=== PATIENT | male | born 1985 | race Caucasian/White ===

== ENCOUNTER 2016-09-23 07:46 | Inpatient (IN) | payer OTHER ==
[2016-09-23] MEDS ORDERED: HYDROmorphONE/DILAUDID 1 MG/ML SYR IVP ONE (07:52)
[2016-09-23 08:01] LABS: % IMMATURE GRANULYOCYTES 0.4 % (0.0-1.1); ABSOLUTE IMMATURE GRANULOCYTES 0.03 10^3/uL (0.00-0.10); ADD DIFF? NO; ADD MORPH? NO; ADD SCAN? NO; ATYPICAL LYMPHOCYTE FLAG 10 (0-99); FRAGMENT RBC FLAG 0 (0-99); LEFT SHIFT FLG 0 (0-99); LIPEMIA HEMOLYSIS FLAG 90 (0-99); MEAN CELL HEMOGLOBIN 28.5 pg (27.9-34.1); MEAN CELL HEMOGLOBIN CONCENTR. 34.8 g/dL (32.4-36.7); MEAN PLATELET VOLUME 11.2 fL (8.7-11.7); PLATELET CLUMPS FLAG 10 (0-99); PLATELET COUNT 214 10^3/uL (150-400); RED BLOOD CELL COUNT 5.61 10^6/uL (4.40-6.38); RED CELL DISTRIBUTION WIDTH 12.8 % (11.5-15.2)
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
[2016-09-23 08:14] LABS: PROTIME(PATIENT) 13.1 SEC (12.0-15.0)
[2016-09-23 08:15] LABS: APTT 26.1 SEC (23.0-38.0)
[2016-09-23 08:16] LABS: ANION GAP 15 mEq/L (8-16); CALCIUM 10.3 mg/dL (8.5-10.4); CARBON DIOXIDE 21 mEq/l (22-31); CHLORIDE 102 mEq/L (97-110); CREATININE 1.2 mg/dL (0.7-1.3); GLOMERULAR FILTRATION RATE > 60; GLUCOSE 102 mg/dL (70-100); SODIUM 138 mEq/L (134-144)
[2016-09-23] MEDS ORDERED: DIAZEPAM 5 MG TAB PO PRN (08:41)
[2016-09-23] MEDS ORDERED: ONDANSETRON DISINTEGRATING 4 MG TAB PO PRN (08:41)
[2016-09-23] MEDS ORDERED: LORazepam 2 MG/ML INJ IVP ONE (08:52)
[2016-09-23] MEDS ORDERED: LORazepam 2 MG/ML INJ ONE (08:53)
[2016-09-23] MEDS ORDERED: LR 1,000 ML IV SCH (09:00)
[2016-09-23] MEDS ORDERED: KETOROLAC 30 MG/1 ML SDV IVP ONE (09:05)
[2016-09-23] MEDS ORDERED: KETOROLAC 30 MG/1 ML SDV ONE (09:05)
[2016-09-23] MEDS ORDERED: LET GEL TOPICAL 1 EA SYR TP ONE ×2 (09:06→09:45)
[2016-09-23] MEDS ORDERED: ONDANSETRON 4 MG/2 ML VIAL IVP ONE (09:17)
[2016-09-23] MEDS ORDERED: NS 1,000 ML IV ONE (09:18)
[2016-09-23] MEDS ORDERED: TDAP ADULT 0.5 ML INJ (BOOSTRIX) IM ONE ×2 (10:14→10:45)
[2016-09-23] MEDS ORDERED: BACITRACIN OINTMENT 1 PACKET TP ONE ×2 (11:00→11:06)
[2016-09-23] MEDS ORDERED: CALCIUM CARBONATE 500 MG CHEWABLE TAB PO PRN (12:30)
--- NOTE | 2016-09-23 12:34 | SOAPPROG ---
Downtime Inpatient MD Late Entry SOAP Note: Tertiary survey completed. Eleazar had no acute findings on cervical MRI and his cervical collar has been removed. He remains hemodynamically stable. He has persistant pain with weight bearing on the LLE/plain films of the left ankle were negative. I have ordered left tib-fib films and will place him in an ankle immobilizer.
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
[2016-09-23] MEDS: ONDANSETRON 4 MG/2 ML VIAL IVP PRN ×2 (14:32→22:49)
[2016-09-23] MEDS: LR 1,000 ML IV SCH (14:51)
--- NOTE | 2016-09-23 15:28 | WOCRNPDOC ---
WOCRN Advanced Assessment Note - Skin Integrity Problem, Advanced Assess Left Lateral Ankle Abrasion Dressing Type: Gauze Dressing Description: Clean/Dry, Intact Exudate Amount: Minimal Exudate Characteristic(s): Serosanguinous Anel Wound Tissue: Erythema (mild from inflammation) Anel Wound Swelling: Moderate (on ankle, not wound specific) Wound Bed Constitution: Smooth Tissue (80%), Mixed Loose & Adhered Slough/ Eschar (20% ) Site Measurement - Head-to-Toe Length X Width X Depth (cm): 1.3x3.2x0.1 Skin Integrity Problem Comment: Mixed full and partial thickness. Care with Wound gel and Allevyn life. Left Flank Abrasion Dressing Type: Gauze Exudate Amount: Minimal Exudate Characteristic(s): Serosanguinous Integumentary Issue Intervention: Visualized Under Dressing Wound Bed Constitution: Smooth Tissue Skin Integrity Problem Comment: Large very shallow partial thickness wound. Care with xeroform/telfa and abd. No concerns. Left Palm Abrasion Dressing Type: Open to Air Skin Integrity Problem Comment: Category 1 skin tear with full flap. Please reapproximate flap, secure with steri strips and cover for protection with mepilex and mily. No sign of infection nor debris in any wounds. Wound care will sign off.
--- NOTE | 2016-09-23 15:35 | CPEKG ---
Heart Rate: 104 RR Interval: 577 P-R Interval: 176 QRSD Interval: 88 QT Interval: 344 QTC Interval: 453 P [place]: 46 QRS [place]: 26 T Wave [place]: 32 EKG Severity - OTHERWISE NORMAL ECG - EKG Impression: SINUS TACHYCARDIA Electronically Signed By: Ayush Reddy 23-Sep-2016 22:05:28
[2016-09-23 16:21] LABS: % IMMATURE GRANULYOCYTES 0.3 % (0.0-1.1); ABSOLUTE IMMATURE GRANULOCYTES 0.04 10^3/uL (0.00-0.10); ADD DIFF? NO; ADD MORPH? NO; ADD SCAN? NO; ATYPICAL LYMPHOCYTE FLAG 0 (0-99); FRAGMENT RBC FLAG 0 (0-99); HEMATOCRIT 39.2 % (40.0-51.0); HEMOGLOBIN 13.9 g/dL (13.7-17.5); LEFT SHIFT FLG 0 (0-99); LIPEMIA HEMOLYSIS FLAG 90 (0-99); MEAN CELL HEMOGLOBIN 28.7 pg (27.9-34.1); MEAN CELL HEMOGLOBIN CONCENTR. 35.5 g/dL (32.4-36.7); MEAN PLATELET VOLUME 11.3 fL (8.7-11.7); PLATELET CLUMPS FLAG 10 (0-99); PLATELET COUNT 157 10^3/uL (150-400); RED BLOOD CELL COUNT 4.84 10^6/uL (4.40-6.38); RED CELL DISTRIBUTION WIDTH 12.9 % (11.5-15.2)
[2016-09-23] MEDS: BACITRACIN ZINC 14.2 GM OINTTUBE TP SCH ×2 (16:39→19:56)
[2016-09-23] MEDS: ENOXAPARIN 40 MG/0.4 ML SYR SC SCH (16:59)
[2016-09-23] MEDS: HYDROCODONE/APAP 5/325 TAB PO PRN (18:26)
--- NOTE | 2016-09-23 22:48 | SOAPPROG ---
Downtime Inpatient MD Late Entry SOAP Note: repeat CXR shows no pneumothorax/atelectasis with stable pulmonary contusion
[2016-09-24] MEDS: HYDROCODONE/APAP 5/325 TAB PO PRN ×3 (00:36→13:21)
[2016-09-24] MEDS: LR 1,000 ML IV SCH (00:44)
[2016-09-24 02:00] LABS: % IMMATURE GRANULYOCYTES 0.3 % (0.0-1.1); ABSOLUTE IMMATURE GRANULOCYTES 0.03 10^3/uL (0.00-0.10); ADD DIFF? NO; ADD MORPH? NO; ADD SCAN? NO; ATYPICAL LYMPHOCYTE FLAG 10 (0-99); FRAGMENT RBC FLAG 0 (0-99); HEMATOCRIT 39.6 % (40.0-51.0); HEMOGLOBIN 13.5 g/dL (13.7-17.5); LEFT SHIFT FLG 0 (0-99); LIPEMIA HEMOLYSIS FLAG 90 (0-99); MEAN CELL HEMOGLOBIN 28.4 pg (27.9-34.1); MEAN CELL HEMOGLOBIN CONCENTR. 34.1 g/dL (32.4-36.7); MEAN CELL VOLUME 83.2 fL (81.5-99.8); MEAN PLATELET VOLUME 11.8 fL (8.7-11.7); PLATELET CLUMPS FLAG 10 (0-99); PLATELET COUNT 157 10^3/uL (150-400); RED BLOOD CELL COUNT 4.76 10^6/uL (4.40-6.38); RED CELL DISTRIBUTION WIDTH 12.9 % (11.5-15.2)
[2016-09-24] MEDS: ONDANSETRON 4 MG/2 ML VIAL IVP PRN ×2 (08:04→21:06)
[2016-09-24] MEDS: ENOXAPARIN 40 MG/0.4 ML SYR SC SCH (08:20)
--- NOTE | 2016-09-24 08:52 | SOAPPROG ---
SOAP Progress Note Assessment/Plan: Assessment: Plan: Subjective: vss,af tolerating pain from l rib fx notes left leg soreness new l apical pneumo. will check cxr tomorrow. Objective: Vital Signs Temp Pulse Resp BP Pulse Ox 36.9 C 94 20 113/69 98 09/24/16 07:09 09/24/16 07:09 09/24/16 07:09 09/24/16 07:09 09/24/16 07:09 Laboratory Results 09/24/16 01:15 09/23/16 Unknown 09/23/16 09/24/16 09/25/16 05:59 05:59 05:59 Intake Total 3174 Output Total 1900 400 Balance 1274 -400 PT 13.1 SEC (12.0-15.0) 09/23/16 Unknown INR 1.00 (0.83-1.16) 09/23/16 Unknown ICD10 Worksheet Patient Problems: Problems Problem Status Onset Multiple rib fractures involving four or more ribs Acute
[2016-09-24 09:21] LABS: % IMMATURE GRANULYOCYTES 0.2 % (0.0-1.1); ABSOLUTE IMMATURE GRANULOCYTES 0.02 10^3/uL (0.00-0.10); ADD DIFF? NO; ADD MORPH? NO; ADD SCAN? NO; ATYPICAL LYMPHOCYTE FLAG 0 (0-99); FRAGMENT RBC FLAG 0 (0-99); HEMOGLOBIN 14.1 g/dL (13.7-17.5); LEFT SHIFT FLG 0 (0-99); LIPEMIA HEMOLYSIS FLAG 90 (0-99); MEAN CELL HEMOGLOBIN 28.8 pg (27.9-34.1); MEAN CELL HEMOGLOBIN CONCENTR. 34.4 g/dL (32.4-36.7); MEAN CELL VOLUME 83.7 fL (81.5-99.8); MEAN PLATELET VOLUME 11.6 fL (8.7-11.7); PLATELET CLUMPS FLAG 0 (0-99); PLATELET COUNT 141 10^3/uL (150-400); RED CELL DISTRIBUTION WIDTH 13.1 % (11.5-15.2)
[2016-09-24] MEDS: BACITRACIN ZINC 14.2 GM OINTTUBE TP SCH ×2 (18:27→22:55)
[2016-09-24] MEDS: FLUTICASONE NASAL 120 SPRAYS/16 GM MDI EACHNARE SCH (21:10)
[2016-09-24] MEDS: OXYMETAZOLINE 30 ML NASAL SPRAY EACHNARE SCH (21:11)
[2016-09-25] MEDS: HYDROCODONE/APAP 5/325 TAB PO PRN ×2 (04:37→12:11)
[2016-09-25] MEDS ORDERED: IBUPROFEN 600 MG TAB PO PRN (08:29)
[2016-09-25] MEDS: ENOXAPARIN 40 MG/0.4 ML SYR SC SCH (08:45)
[2016-09-25] MEDS: FLUTICASONE NASAL 120 SPRAYS/16 GM MDI EACHNARE SCH (08:47)
[2016-09-25] MEDS: BACITRACIN ZINC 14.2 GM OINTTUBE TP SCH (08:47)
[2016-09-25] MEDS ORDERED: POLYETHYLENE GLYCOL 3350 17 GM PKT PO PRN (08:50)
[2016-09-25] MEDS ORDERED: BISACODYL 10 MG SUPP PR PRN (08:50)
[2016-09-25] MEDS ORDERED: MAGNESIUM HYDROXIDE 30 ML UDCUP PO PRN (08:50)
[2016-09-25] MEDS ORDERED: LACTULOSE 20 GM/30 ML UDCUP PO PRN (08:50)
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
[2016-09-25 08:56] VITALS: RESP 20
[2016-09-25] MEDS ORDERED: SENNOSIDES/DOCUSATE SODIUM TAB PO SCH (09:00)
[2016-09-25] MEDS: OXYMETAZOLINE 30 ML NASAL SPRAY EACHNARE SCH (09:00)
[2016-09-25 12:30] VITALS: BP 116/70; PULSE 74; TEMP 97.9; O2SAT 93
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
== END 2016-09-25 16:00 | disposition home or self-care (01) | DRG 199 ==
LOC: F3E 12:15
PROVIDERS: ADMIT Surgery; ATTEND Surgery
DX: S27.0XXA Traumatic pneumothorax, initial encounter (principal); S22.42XA Multiple fractures of ribs, left side, initial encounter for closed fracture; S27.331A Laceration of lung, unilateral, initial encounter; S93.402A Sprain of unspecified ligament of left ankle, initial encounter; S90.512A Abrasion, left ankle, initial encounter; S30.811A Abrasion of abdominal wall, initial encounter; S60.512A Abrasion of left hand, initial encounter; V13.4XXA Pedal cycle driver injured in collision with car, pick-up truck or van in traffic accident, initial encounter; Y92.411 Interstate highway as the place of occurrence of the external cause; Y93.55 Activity, bike riding; Y99.8 Other external cause status
CPT/HCPCS: 82947-QW; 92507-GN; 92523-GN; 96374; 97116-GP; 97162-GP; 97165-GO; 97535-GO; J1650; J1885; J2060; J2405; L0172

== ENCOUNTER → 2016-10-05 | Outpatient (CLI) | payer OTHER | LOC: FIMAGING 10:50 | PROVIDERS: ATTEND Surgery | DX: Z09 Encounter for follow-up examination after completed treatment for conditions other than malignant neoplasm (principal); Z87.09 Personal history of other diseases of the respiratory system ==

== ENCOUNTER → 2016-11-27 | Outpatient (CLI) | payer OTHER | LOC: FIMAGING 10:11 | PROVIDERS: ATTEND Physician Assistant Surgical | DX: S22.42XD Multiple fractures of ribs, left side, subsequent encounter for fracture with routine healing (principal); Y93.55 Activity, bike riding ==

== ENCOUNTER 2016-12-08 19:48 | Emergency (ER) | payer OTHER ==
[2016-12-08 19:52] VITALS: RESP 16; TEMP 97.9; O2SAT 97
--- NOTE | 2016-12-08 20:02 | CPEKG ---
Heart Rate: 60 RR Interval: 1000 P-R Interval: 160 QRSD Interval: 92 QT Interval: 400 QTC Interval: 400 P [place]: 48 QRS [place]: 37 T Wave [place]: 31 EKG Severity - OTHERWISE NORMAL ECG - EKG Impression: SINUS ARRHYTHMIA, RATE 46-77 Electronically Signed By: Ellen Chung 10-Dec-2016 14:59:27
--- NOTE | 2016-12-08 20:02 | CPEKG ---
Heart Rate: 60 RR Interval: 1000 P-R Interval: 160 QRSD Interval: 92 QT Interval: 400 QTC Interval: 400 P [place]: 48 QRS [place]: 37 T Wave [place]: 31 EKG Severity - OTHERWISE NORMAL ECG - EKG Impression: SINUS ARRHYTHMIA, RATE 46-77 Electronically Signed By: Ellen Chung 10-Dec-2016 14:59:27
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
[2016-12-08 20:15] LABS: PLATELET COUNT 218 10^3/uL (150-400)
[2016-12-08] MEDS ORDERED: OXYCODONE/APAP 5/325 TAB PO ONE (20:48)
[2016-12-08] MEDS ORDERED: predniSONE 20 MG TAB PO ONE (20:48)
[2016-12-08 21:57] VITALS: BP 124/76; PULSE 77
== END 2016-12-08 21:57 | disposition home or self-care (01) ==
DX: M94.0 Chondrocostal junction syndrome [Tietze] (principal); N28.9 Disorder of kidney and ureter, unspecified; J06.9 Acute upper respiratory infection, unspecified

== ENCOUNTER 2016-12-11 19:30 | Emergency (ER) | payer OTHER ==
[2016-12-11 19:43] VITALS: TEMP 98.1
--- NOTE | 2016-12-11 20:27 | EDPHY ---
H & P Stated Complaint: follow-up check up for kidney function- here 12/08 Time Seen by Provider: 12/11/16 20:01 HPI/ROS: CHIEF COMPLAINT: Referred to ED for creatinine recheck HISTORY OF PRESENT ILLNESS: The patient was seen in the emergency department several days ago and was noted to have a slightly elevated creatinine of 2.1. The patient had been taking laxatives and NSAIDs. He was advised to discontinue these medications. The patient reports he has had normal urine output. He denies any complaints of back pain or vomiting. The patient denies fever. The patient denies cough or congestion. The patient did have a fairly extensive workup several days ago for chest pain. He reports the symptoms have not worsened or returned. REVIEW OF SYSTEMS: A comprehensive 10 point review of systems is otherwise negative aside from elements mentioned in the history of present illness. Source: Patient Exam Limitations: No limitations - Personal History Current Tetanus Diphtheria and Acellular Pertussis (TDAP): Yes - Medical/Surgical History Hx Asthma: No Hx Chronic Respiratory Disease: No Hx Diabetes: No Hx Cardiac Disease: No Hx Renal Disease: No Hx Cirrhosis: No Hx Alcoholism: No Hx HIV/AIDS: No Hx Splenectomy or Spleen Trauma: No Other PMH: Hernia x2, appy, chronic sinus infections, Labrium shoulder surgery, failed tympanoplasty - Social History Smoking Status: Never smoked - Physical Exam Exam: General Appearance: Alert, no distress Eyes: Pupils equal and round no pallor or injection ENT, Mouth: Mucous membranes moist Respiratory: There are no retractions, lungs are clear to auscultation Cardiovascular: Regular rate and rhythm Gastrointestinal: Abdomen is soft and nontender, no masses, bowel sounds normal Neurological: A&O, normal motor function, normal sensory exam, normal cranial nerves Skin: Warm and dry, no rashes Musculoskeletal: Neck is supple nontender Extremities: symmetrical, full range of motion Constitutional: Initial Vital Signs Temperature (C) 36.7 C 12/11/16 19:40 Heart Rate 81 12/11/16 19:40 Respiratory Rate 20 12/11/16 19:40 Blood Pressure 145/77 H 12/11/16 19:40 O2 Sat (%) 98 12/11/16 19:40 O2 Delivery Mode Room Air Allergies/Adverse Reactions: No Known Allergies Allergy (Unverified 12/11/16 19:40) Home Medications: Medication Instructions Recorded Calcium Carbonate [Tums 500MG (*)] 500 mg PO DAILY PRN 09/23/16 levOFLOXACIN [levAQUIN (*)] 500 mg PO DAILY 09/23/16 Diazepam [Valium 5 MG (*)] 5 mg PO Q6HRS PRN #20 tab 09/25/16 Hydrocodone/APAP 5/325 [[place] 1 - 2 tab PO Q6HRS PRN #30 tab 09/25/16 5/325 (*)] Ibuprofen [Motrin (*)] 600 mg PO Q6HRS PRN #0 tab 09/25/16 oxyCODONE/APAP 5/325 [Percocet 1 - 2 tab PO Q4H PRN #12 tab 12/08/16 5/325 (*)] predniSONE [predniSONE TAPER] 10 mg PO DAILY 6 Days ea 12/08/16 Medical Decision Making ED Course/Re-evaluation: I reviewed the patient's ED visit from December 08. This included laboratory studies which demonstrated a creatinine of 2.1 without evidence of hyperkalemia. The patient did have a repeat I-STAT creatinine and it is normal at 1.0. The patient has been reassured. The patient has been instructed to follow up with his primary care provider as scheduled. He is advised to not use NSAIDs and laxatives in excess. Differential Diagnosis: Differential diagnosis considered includes acute renal failure, hyperkalemia, dehydration, medication side effect - Data Points Laboratory Results: 12/11/16 20:32 POC Hgb 15.6 gm/dL gm/dL (13.7-17.5) POC Hct 46 % % (40-51) POC Sodium 142 mEq/L mEq/L (134-144) POC Potassium 3.8 mEq/L mEq/L (3.3-5.0) POC Chloride 102 mEq/L mEq/L (97-110) POC BUN 12 mg/dL mg/dL (7-23) POC Creatinine 1.0 mg/dL mg/dL (0.7-1.3) POC Glucose 139 mg/dL H mg/dL (70-100) Point of Care Test Results: 12/11/16 20:32 POC Sodium 142 POC Potassium 3.8 POC Chloride 102 POC BUN 12 POC Creatinine 1.0 POC Glucose 139 H Departure - Departure Disposition: Home, Routine, Self-Care Clinical Impression: Dehydration Condition: Good Instructions: Dehydration (ED) Additional Instructions: 1. [facility]. 2. Return to the emergency department for any back pain, vomiting, weakness or other concerns. 3. Avoid excess use of ibuprofen, NSAIDs, Aleve and Motrin. 4. Please try and maintain adequate hydration. 5. Your kidney function is completely normal today. Referrals: [facility],. [Clinic] - As per Instructions
[2016-12-11 21:09] VITALS: BP 109/70; PULSE 64; RESP 16; O2SAT 94
== END 2016-12-11 21:08 | disposition home or self-care (01) ==
DX: E86.0 Dehydration (principal)
CPT/HCPCS: 82947-QW

== ENCOUNTER 2017-02-23 15:20 | Inpatient (IN) | payer OTHER ==
[2017-02-23 16:32] LABS: PLATELET COUNT 242 10^3/uL (150-400)
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
[2017-02-23] MEDS ORDERED: LORazepam 1 MG TAB PO ONE (18:53)
[2017-02-23] MEDS ORDERED: MIDAZOLAM 10 MG/2 ML VIAL ONE (23:01)
[2017-02-24 00:12] VITALS: RESP 16
[2017-02-24] MEDS ORDERED: LORazepam 1 MG TAB PO ONE (02:27)
[2017-02-24] MEDS ORDERED: MAGNESIUM HYDROXIDE 30 ML UDCUP PO PRN (03:57)
[2017-02-24] MEDS ORDERED: MAG HYDROX/AL HYDROX/SIMETH 30 ML UDCUP PO PRN (03:57)
[2017-02-24] MEDS ORDERED: ACETAMINOPHEN 325 MG TAB PO PRN (03:57)
[2017-02-24] MEDS ORDERED: LORazepam 0.5 MG TAB PO PRN (03:57)
[2017-02-24] MEDS ORDERED: NICOTINE POLACRILEX 2 MG GUM B PRN (03:57)
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
[2017-02-24] MEDS ORDERED: ACETAMINOPHEN 500 MG TAB PO PRN (18:30)
[2017-02-24] MEDS ORDERED: IBUPROFEN 600 MG TAB PO PRN (18:46)
[2017-02-25 06:35] VITALS: BP 105/63; PULSE 68; TEMP 97.5; O2SAT 96
== END 2017-02-25 13:00 | disposition home or self-care (01) | DRG 882 ==
LOC: BBEH 02-24 03:45
PROVIDERS: ADMIT Psychiatry & Neurology Behavioral Neurology & Neuropsychiatry; ATTEND Psychiatry & Neurology Behavioral Neurology & Neuropsychiatry
DX: F43.25 Adjustment disorder with mixed disturbance of emotions and conduct (principal); F12.90 Cannabis use, unspecified, uncomplicated; M71.9 Bursopathy, unspecified
CPT/HCPCS: 80305; G0480